=== PATIENT | male | born 1990 | race African-American/Black ===

== ENCOUNTER 2021-02-06 18:32 | Emergency (ER) | payer SELFPAY | END 2021-02-06 18:51 | disposition left against medical advice (07) | LOC: CSHERS 18:32 | DX: Z53.21 Procedure and treatment not carried out due to patient leaving prior to being seen by health care provider (principal) ==

== ENCOUNTER 2021-06-03 19:45 | Emergency (ER) | payer OTHER, SELFPAY ==
[2021-06-03] MEDS ORDERED: Lidocaine 1% (PF) 30 ML VIAL ONE ×2 (21:00→21:03)
[2021-06-03] MEDS ORDERED: Boostrix 0.5 ML (Tdap) VIAL ONE (21:48)
== END 2021-06-03 22:09 | disposition home or self-care (01) ==
LOC: CSHERS 19:45
DX: S01.511A Laceration without foreign body of lip, initial encounter (principal); S01.81XA Laceration without foreign body of other part of head, initial encounter; V47.5XXA Car driver injured in collision with fixed or stationary object in traffic accident, initial encounter
CPT/HCPCS: 12011; 12052; 90471; 90715; J2001

== ENCOUNTER 2021-06-08 09:08 | Emergency (ER) | payer SELFPAY | END 2021-06-08 10:43 | disposition home or self-care (01) | LOC: CSHERS 09:08 | DX: S01.511D Laceration without foreign body of lip, subsequent encounter (principal); S01.81XD Laceration without foreign body of other part of head, subsequent encounter; V89.2XXD Person injured in unspecified motor-vehicle accident, traffic, subsequent encounter ==